=== PATIENT | male | born 1985 | race Hispanic/Latino ===

== ENCOUNTER 2020-09-30 06:01 | Emergency (ER) | payer OTHER, SELFPAY ==
--- NOTE | ~2020-09-30 | CT_ITS ---
EXAMINATION: CT abdomen pelvis wo con DATE: 09/30/2020 07:01 INDICATION: Flank pain. TECHNIQUE: Computed tomography (CT) of the abdomen and pelvis was performed without intravenous contr ast. Automated exposure control and iterative reconstruction technique were employed. The dose-length product was 413.40 mGy-cm. COMPARISON: None. FINDINGS: The visualized portions of the lung bases demonstrate mild atelectasis. There is air trappi ng in basilar left lower lobe. There is a 1.6 cm nodule in left lower lobe. No pleural effusion. The heart size is normal. No pericardial effusion. There is diffuse hepatic steatosis. The gallbladder, s pleen, pancreas, adrenal glands, and kidneys are normal. There is no urolithiasis. There is diverticu losis of the colon without evidence of diverticulitis. The appendix is normal. There are no pathologi susan enlarged lymph nodes. There is no free intraperitoneal fluid. There is mild lumbar spondylosis. IMPRESSION: 1. 1.6 cm nodule in left lung lower lobe, most likely infection. Noncontrast low-dose chest CT is rec ommended in 3 months to exclude malignancy. 2. No urolithiasis. Reviewed, dictated and finalized at location A. IMPRESSION: 1. 1.6 cm nodule in left lung lower lobe, most likely infection. Noncontrast lo w-dose chest CT is recommended in 3 months to exclude malignancy. 2. No urolithiasis.
[2020-09-30 06:06] VITALS: BP 154/101; PULSE 101; RESP 16; TEMP 36.4; O2SAT 98
[2020-09-30] MEDS: SODIUM CHLORIDE 0.9% IV 1,000 ML 999 ML IV CONT (06:28)
[2020-09-30 06:30] LABS: Basophils Absolute Auto 0.1 K/mm3 (0.0-0.1); Basophils Percent Auto 0.7 % (0.2-1.2); Eosinophils Absolute Auto 0.2 K/mm3 (0-0.3); Eosinophils Percent Auto 2.4 % (0-4.4); Hemoglobin 16.6 g/dL (14.0-18.0); Immature Granulocyte Absolute 0.03 K/mm3 (0.00-0.031); Immature Granulocyte Percent A 0.4 % (0-0.5); Lymphocytes Absolute Auto 1.97 K/mm3 (0.9-3.2); Lymphocytes Percent Auto 29.5 % (18.3-44.2); Mean Corpuscular HGB Conc 34.6 g/dl (32-36); Mean Corpuscular Hemoglobin 31.3 pg (26-34); Mean Corpuscular Volume 90.6 fl (80-100); Mean Platelet Volume 9.4 fl (7.4-10.4); Monocytes Absolute Auto 0.5 K/mm3 (0.1-0.6); Monocytes Percent Auto 8.1 % (2.6-8.5); Neutrophils Absolute Auto 3.9 K/mm3 (1.3-6.7); Neutrophils Percent Auto 58.9 % (45.5-73.1); Platelet Count Result 286 k/mm3 (150-375); White Blood Count 6.7 K/mm3 (4.5-10.0)
[2020-09-30 06:38] LABS: Add Urine Microscopic? YES; Appearance Urine Clear (Clear); Bacteria Urine Trace /hpf; Bilirubin Urine 1+ (Negative); Blood Urine 1+ (Negative); Color Urine Amber (Yellow); Glucose Urine UA Negative (Negative); Ketones Urine Negative (Negative); Leukocyte Esterase Ur Negative LEU/UL (Negative); Mucus Urine Heavy /lpf; Nitrate Urine Negative (Negative); Protein Urine 2+ mg/dL (Negative); Squamous Epithelial Cell Urine Rare /hpf (Few)
[2020-09-30 06:39] LABS: Alanine Aminotransferase 144 U/L (4-50); Albumin Level 4.7 g/dL (3.5-5.1); Alkaline Phosphatase 103 U/L (38-126); Anion Gap 12 mmol/L (8-16); Aspartate Amino Transferase 139 U/L (17-59); Bilirubin,Total 1.1 mg/dL (0.2-1.3); Blood Urea Nitrogen 8 mg/dL (9-20); Calcium 9.6 mg/dL (8.4-10.2); Carbon Dioxide 24 mmol/L (22-30); Chloride 105 mmol/L (98-107); Estimated CRCL calculation 160 ml/min; Estimated Glomerular Filt Rate > 60; Glucose 122 mg/dL (75-110); Potassium 3.7 mmol/L (3.4-5.0); Sodium 141 mmol/L (137-145)
--- NOTE | 2020-09-30 06:45 | ED.GENADULT ---
HPI - General Adult General Chief complaint: Back Pain/Injury <Ilan Vazquez MD - Last Filed: 09/30/20 06:48> Stated complaint: back pain <Ilan Vazquez MD - Last Filed: 09/30/20 06:48> Time Seen by Provider: 09/30/20 06:05 <Ilan Vazquez MD - Last Filed: 09/30/20 06:48> History of Present Illness HPI narrative: Patient is a 25-year-old male who presents ER with abdominal pain and back pain. Reports earlier in the week patient began having left upper quadrant abdominal pain after eating. Improved he did not think much of it. He has been having a few alcoholic beverages but denies drinking in excess. He reports he is then started having seem back cramping related to this. It tends to improve with Tylenol. Is not affected by movement. No known injury. Reports he woke up this morning he started urinating. He then had to use the bathroom 2-3 times. After that he began having severe back pain as well. No sweats or nausea or vomiting. No history of kidney stones. <Ilan Vazquez MD - Last Filed: 09/30/20 06:48> Related Data Allergies/adverse reactions: Allergies Allergy/AdvReac Type Severity Reaction Status Date / Time No Known Allergies Allergy Verified 09/30/20 06:20 <Ilan Vazquez MD - Last Filed: 09/30/20 06:48> Review of Systems Review of Systems: All systems reviewed & are unremarkable except as noted in HPI and below <Ilan Vazquez MD - Last Filed: 09/30/20 06:48> Constitutional: Constitutional: Denies chills, Denies fever(s) and Denies weakness <Ilan Vazquez MD - Last Filed: 09/30/20 06:48> Gastrointestinal: Gastrointestinal: Reports abdominal pain, Denies diarrhea, Denies nausea and Denies vomiting <Ilan Vazquez MD - Last Filed: 09/30/20 06:48> Genitourinary: Genitourinary: Denies hematuria, Denies dysuria and Reports urinary frequency <Ilan Vazquez MD - Last Filed: 09/30/20 06:48> Musculoskeletal: Musculoskeletal: Reports back pain and Denies muscle cramps <Ilan Vazquez MD - Last Filed: 09/30/20 06:48> PMFSH Past Medical History Medical History: Medical History (Updated 09/30/20 @ 09:45 by Amanda Rocha MD) Healthy adult male <Ilan Vazquez MD - Last Filed: 09/30/20 06:48> Surgical History Surgical History: Surgical History (Updated 09/30/20 @ 06:47 by Ilan Vazquez MD) No history of previous surgery <Ilan Vazquez MD - Last Filed: 09/30/20 06:48> Social History Social History: Social History (Updated 09/30/20 @ 06:47 by Ilan Vazquez MD) Alcohol intake: current Gender identity (if verbalized by the patient): Male <Ilan Vazquez MD - Last Filed: 09/30/20 06:48> Exam Narrative: Exam Narrative: GENERAL: Well-appearing, well-nourished, and in no acute distress. HEAD: Normocephalic, atraumatic. CHEST: Clear to auscultation. No respiratory distress. HEART: Tachycardic and regular. Normal peripheral pulses. ABDOMEN: Soft, nontender, nondistended. Back: No CVA tenderness. Reproducible paraspinal or midline tenderness the patient does report his pain was centered around the T10 region. EXTREMITIES: Normal range of motion. No edema. SKIN: Warm, dry, no rash. NEURO: Alert and oriented x3. PSYCH: Normal mood and affect. <Ilan Vazquez MD - Last Filed: 09/30/20 06:48> Course Reevaluation(s) Reevaluation #1: Patient feeling okay. Currently is asymptomatic, was notified about the lung nodule. Patient understood and agreed to follow-up with a family physician for further evaluation. <Amanda Rocha MD - Last Filed: 09/30/20 09:49> Date: 09/30/20 <Amanda Rocha MD - Last Filed: 09/30/20 09:49> Time: 09:49 <Amanda Rocha MD - Last Filed: 09/30/20 09:49> Vital Signs Vital signs: Vital Signs Temperature 36.4 C L 09/30/20 06:06 Pulse Rate 101 H 09/30/20 06:06 Respiratory Rate 16 09/30/20 06:06 Blood Pressure 154/101 H 05
[2020-09-30 06:46] LABS: Specific Grav Ur 1.035 (1.001-1.035)
[2020-09-30 06:55] LABS: Lipase 89 U/L (23-300)
[2020-09-30 07:10] VITALS: BP 136/99; PULSE 91; RESP 20; O2SAT 100
[2020-09-30 08:13] VITALS: BP 129/91; PULSE 88; RESP 20; O2SAT 98
[2020-09-30 09:32] VITALS: BP 140/107; PULSE 86; RESP 20; O2SAT 100
[2020-09-30 10:00] VITALS: BP 140/107; PULSE 90; RESP 18; O2SAT 98
== END 2020-09-30 10:02 | disposition home or self-care (01) ==
PROVIDERS: Emergency Medicine; Emergency Provider Emergency Medicine
DX: R91.1 Solitary pulmonary nodule (principal); R10.10 Upper abdominal pain, unspecified
CPT/HCPCS: 36415; 74176; 80053; 81001; 83690; 85025; 96360; 99284; J7030

== ENCOUNTER 2020-10-05 09:25 | Outpatient (CLI) | payer OTHER, SELFPAY ==
--- NOTE | ~2020-10-05 | XR_ITS ---
EXAMINATION: XR abdomen/kub 1V EXAM DATE: 10/05/2020 10:02 INDICATION: Abnormal urinalysis, left upper quadrant pain. TECHNIQUE: Frontal projection(s) of the abdomen for interpretation. There is no prior study for lesia jones. FINDINGS: There is expected amount of colonic stool and gas. No small bowel dilation, nonobstructiv e bowel gas pattern. Calcifications in the pelvis are believed to be phleboliths. There are no susp icious calcifications identified. There is no organomegaly suspected. The bones are unremarkable. IMPRESSION: Unremarkable abdomen x-ray exam. Reviewed, dictated and finalized at location B.
--- NOTE | ~2020-10-05 | US_ITS ---
EXAMINATION: US renal BI, US abdomen limited DATE: 10/05/2020 10:28 INDICATION: Elevated liver enzymes. Back pain. Abnormal urine. TECHNIQUE: Multiple ultrasound grayscale images of the right upper quadrant of the abdomen and of the kidneys were obtained. COMPARISON: None. FINDINGS: Abdomen: The pancreatic head and body are normal in appearance. The pancreatic tail is not visualized. Liver has normal contour, with a smooth surface. There is increased parenchymal echogenicity and coarsened echotexture consistent with diffuse hepatic steatosis. No liver lesion identified. No intrahepatic b iliary duct dilation suspected. Portal venous flow was seen in the hepatopetal, normal direction and has normal Doppler waveform. The gallbladder is normal in appearance. There is no cholelithiasis. Th e common bile duct measures 3 mm, which is normal. The visualized proximal to mid inferior vena cava is normal. The proximal aorta is suboptimally visualized but appears normal in caliber. Kidneys: The right kidney measures 12.7 x 4.6 x 5.4 cm. The left kidney measures 11.7 x 6.4 x 4.9 cm. The kidn eys demonstrate normal echogenicity. There is no hydronephrosis in either kidney. No stones identifi ed. The bladder is normal. IMPRESSION: 1. Diffuse hepatic steatosis. Otherwise normal right upper quadrant ultrasound. 2. Normal kidneys without hydronephrosis. Reviewed, dictated and finalized at location A. IMPRESSION: 1. Diffuse hepatic steatosis. Otherwise normal right upper quadrant ultrasound. 2. Normal kidneys without hydronephrosis.
[2020-10-05 10:47] LABS: Add Urine Microscopic? YES; Appearance Urine Clear (Clear); Bilirubin Urine Negative (Negative); Blood Urine Negative (Negative); Color Urine Amber (Yellow); Glucose Urine UA Negative (Negative); Ketones Urine Trace mg/dL (Negative); Leukocyte Esterase Ur Negative LEU/UL (NEGATIVE); Nitrate Urine Negative (Negative); Protein Urine 2+ mg/dL (Negative); Specific Grav Ur 1.021 (1.001-1.035)
[2020-10-05 10:51] LABS: Mucus Urine Few /lpf
[2020-10-05 10:52] LABS: WBC Urine 0-3 /hpf (0-3)
[2020-10-05 11:38] LABS: Hepatitis B Surface Antigen Negative (Negative)
[2020-10-05 11:44] LABS: HAV RESULT Negative (Negative); Hepatitis B Core IgM Result Negative (Negative)
[2020-10-05 11:56] LABS: Hepatitis C Virus Antibody Negative (Negative)
== END 2020-10-05 09:26 | disposition home or self-care (01) ==
PROVIDERS: PCP Emergency Medicine; Visit Provider Emergency Medicine
DX: R74.8 Abnormal levels of other serum enzymes (principal); K76.0 Fatty (change of) liver, not elsewhere classified; R82.90 Unspecified abnormal findings in urine
CPT/HCPCS: 36415; 74018; 76705; 76775; 80074; 81001; 87086

== ENCOUNTER → 2020-11-10 12:45 | Outpatient (CLI) | payer OTHER, SELFPAY ==
--- NOTE | ~2020-11-10 | XR_ITS ---
XR chest 2V DATE: 11/10/2020 13:14 INDICATION: Cough, fever, chest pain for 3 days TECHNIQUE: Frontal and lateral projections COMPARISON: None FINDINGS: Normal heart size. No hilar or mediastinal enlargement. No pulmonary infiltrate or consolid ation, pleural effusion or pulmonary vascular congestion or pneumothorax. Included skeletal structures are unremarkable. IMPRESSION: No active cardiopulmonary disease Reviewed, dictated and finalized at location A.
== END ==
LOC: EXPCRAD 12:48
PROVIDERS: PCP Emergency Medicine; Visit Provider Emergency Medicine
DX: R05 Cough (principal)
CPT/HCPCS: 71046

== ENCOUNTER → 2020-11-13 06:46 | Outpatient (CLI) | payer OTHER, SELFPAY ==
[2020-11-13 16:50] LABS: SARS-CoV-2 RNA PCR Negative
== END ==
PROVIDERS: PCP Emergency Medicine; Visit Provider Emergency Medicine
DX: J06.9 Acute upper respiratory infection, unspecified (principal); R05 Cough; Z20.822 Contact with and (suspected) exposure to COVID-19
CPT/HCPCS: C9803; U0003; U0005

== ENCOUNTER 2020-11-14 13:37 | Emergency (ER) | payer OTHER, SELFPAY ==
[2020-11-14] VITALS (18 sets, daily range): BP systolic 110–131; BP diastolic 73–85; PULSE 92–104; RESP 13–24; TEMP 36.9; O2SAT 98–100
--- NOTE | ~2020-11-14 | XR_ITS ---
EXAMINATION: XR chest 1V portable DATE: 11/14/2020 14:29 INDICATION: Fever. TECHNIQUE: A single frontal view of the chest was obtained. COMPARISON: Chest 2 views 11/10/2020, CT abdomen and pelvis 09/30/2020 FINDINGS: There is mild atelectasis in the lower lung zones. No pleural effusion or pneumothorax. The heart size is normal. IMPRESSION: 1. Mild atelectasis in the lower lung zones. Reviewed, dictated and finalized at location A.
--- NOTE | 2020-11-14 14:19 | ECG_ITS ---
Measurements Intervals [place] Rate: 96 P: 40 KS: 168 QRS: 38 QRSD: 91 T: 18 QT: 339 QTc: 429 Interpretive Statements SINUS RHYTHM MINIMAL Q WAVES- INF/LAT LEADS BASELINE ARTIFACT- V2 BORDERLINE ECG Electronically Signed On 11-14-2020 16:31:55 CDT by Santos Yepez D.O.
[2020-11-14 15:05] LABS: Basophils Percent Auto 0.5 % (0.2-1.2); Eosinophils Percent Auto 0.4 % (0-4.4); Hematocrit 42.1 % (42.0-52.0); Hemoglobin 14.9 g/dL (14.0-18.0); Immature Granulocyte Absolute 0.03 K/mm3 (0.00-0.031); Immature Granulocyte Percent A 0.4 % (0-0.5); Lymphocytes Absolute Auto 0.88 K/mm3 (0.9-3.2); Lymphocytes Percent Auto 10.5 % (18.3-44.2); Mean Corpuscular HGB Conc 35.4 g/dl (32-36); Mean Corpuscular Hemoglobin 30.7 pg (26-34); Mean Corpuscular Volume 86.8 fl (80-100); Mean Platelet Volume 9.1 fl (7.4-10.4); Monocytes Absolute Auto 0.9 K/mm3 (0.1-0.6); Monocytes Percent Auto 11.2 % (2.6-8.5); Neutrophils Absolute Auto 6.5 K/mm3 (1.3-6.7); Platelet Count Result 411 k/mm3 (150-375); Red Blood Count 4.85 M/mm3 (4.6-6.20); White Blood Count 8.4 K/mm3 (4.5-10.0)
[2020-11-14] MEDS: SODIUM CHLORIDE 0.9% IV 1,000 ML 999 ML IV CONT (15:12)
[2020-11-14 15:14] LABS: Lactic Acid Reflex 1.3 mmol/L (0.7-2.1)
[2020-11-14 15:23] LABS: Alanine Aminotransferase 75 U/L (4-50); Albumin Level 4.2 g/dL (3.5-5.1); Alkaline Phosphatase 116 U/L (38-126); Anion Gap 13 mmol/L (8-16); Aspartate Amino Transferase 77 U/L (17-59); Bilirubin,Total 1.3 mg/dL (0.2-1.3); Blood Urea Nitrogen 8 mg/dL (9-20); Calcium 9.8 mg/dL (8.4-10.2); Carbon Dioxide 28 mmol/L (22-30); Chloride 88 mmol/L (98-107); Estimated CRCL calculation 168 ml/min; Estimated Glomerular Filt Rate > 60; Glucose 124 mg/dL (75-110); Lipase 87 U/L (23-300); Potassium 3.1 mmol/L (3.4-5.0); Sodium 129 mmol/L (137-145)
[2020-11-14 15:58] LABS: CRP 37.5 mg/dL (<1.0)
[2020-11-14 16:17] LABS: Add Urine Microscopic? YES; Appearance Urine Clear (Clear); Bacteria Urine Trace /hpf; Bilirubin Urine Negative (Negative); Blood Urine Negative (Negative); Color Urine Amber (Yellow); Glucose Urine UA Negative (Negative); Ketones Urine Trace mg/dL (Negative); Leukocyte Esterase Ur Negative LEU/UL (Negative); Mucus Urine Rare /lpf; Nitrate Urine Negative (Negative); Protein Urine 2+ mg/dL (Negative); RBC Urine 0-2 /hpf (0-2); Squamous Epithelial Cell Urine Rare /hpf (Few); WBC Urine 0-3 /hpf
--- NOTE | 2020-11-14 16:31 | WPDEDEXPGENP ---
HPI - General Ped General Chief complaint: Fever Stated complaint: Fever Time Seen by Provider: 11/14/20 14:19 Source: patient, family and RN notes reviewed Mode of arrival: ambulatory Limitations: no limitations History of Present Illness HPI narrative: Patient is a 35-year-old male who presents to emergency department for evaluation of fever chills body aches cough productive of green phlegm that been present since prior Friday patient has had 3 - Covid test during this.. Patient notes initially he had some nausea and vomiting which has resolved. Patient notes he has not been vaccinated for Covid. Patient notes his nausea has resolved but he continues to have fevers Related Data Allergies Allergy/AdvReac Type Severity Reaction Status Date / Time No Known Allergies Allergy Verified 09/30/20 06:20 Pediatric Review of Systems All systems ED: reviewed and negative except as stated PMFSH Past Medical History Medical History Healthy adult male Surgical History Surgical History No history of previous surgery Social History Social History (Updated 11/14/20 @ 16:34 by Mohan Nava PA-C) Smoking status: Never smoker Alcohol intake: current Gender identity (if verbalized by the patient): Male Pediatric Exam Narrative: Physical exam: GENERAL: Well-appearing, well-nourished, and in no acute distress. HEAD: Normocephalic, atraumatic. EYES: PERRLA and EOMI. ENT: Nares clear, no rhinorrhea or epistaxis. Mucous membranes moist. Oropharynx without tonsillar hypertrophy exudate or other lesions. Bilateral TMs pearly miguel nonbulging NECK: Supple. No adenopathy or masses. CHEST: Clear to auscultation. No respiratory distress. No wheezes rales or rhonchi HEART: Regular rate and rhythm. No murmur heard. Normal peripheral pulses. ABDOMEN: Soft, nontender, nondistended EXTREMITIES: Normal range of motion. No edema. SKIN: Warm, dry, no rash. NEURO: No focal deficits. Alert and oriented x3. PSYCH: Normal mood and affect. Course Course Emergency Course: Patient presented with fever and upper respiratory symptoms had negative influenza strep and Covid test will be sent back to primary care for further evaluation no other sources to suggest a site for infection nontender abdominal exam. Patient does currently still have a cough could potentially be a walking pneumonia or sinus symptoms as the etiology patient at this time is nontoxic-appearing afebrile Vital Signs Vital signs: Vital Signs Temperature 98.4 F 11/14/20 13:48 Pulse Rate 98 11/14/20 13:48 Respiratory Rate 16 11/14/20 13:48 Blood Pressure 131/85 11/14/20 13:48 Pulse Oximetry 100 11/14/20 13:48 Temperature 98.4 F 11/14/20 13:48 Pulse Rate 94 11/14/20 16:00 Respiratory Rate 20 11/14/20 16:00 Blood Pressure 110/77 11/14/20 15:30 Pulse Oximetry 99 11/14/20 16:00 Medical Decision Making MDM Narrative Medical decision making narrative: Patient presented with upper respiratory symptoms will be managed on outpatient basis provided with reasons to return patient with ABCs and vital signs intact and stable. Patient is nontoxic-appearing no distress felt appropriate for outpatient reevaluation agreeing with this plan Vital Signs Vital Signs: Vital Signs Temperature 98.4 F 11/14/20 13:48 Pulse Rate 98 11/14/20 13:48 Respiratory Rate 16 11/14/20 13:48 Blood Pressure 131/85 11/14/20 13:48 Pulse Oximetry 100 11/14/20 13:48 Temperature 98.4 F 11/14/20 13:48 Pulse Rate 94 11/14/20 16:00 Respiratory Rate 20 11/14/20 16:00 Blood Pressure 110/77 11/14/20 15:30 Pulse Oximetry 99 11/14/20 16:00 Lab Data Result diagrams: 11/14/20 14:57 11/14/20 14:57 Labs: Lab Results 11/14/20 11/14/20 11/14/20 Range/Units 14:57 14:57 14:57 WBC 8.4 (4.5-10
[2020-11-14 16:34] LABS: Specific Grav Ur 1.031 (1.001-1.035)
[2020-11-14 16:42] LABS: Monoscreen Negative (Negative); Negative Monotest Control Negative (Negative); Positive Monotest Control Positive (Positive)
[2020-11-14] MEDS: IBUPROFEN IV 800 MG/200 ML 800 MG/200 ML BAG 400 MG IVPB (17:35)
== END 2020-11-14 18:37 | disposition home or self-care (01) ==
PROVIDERS: Emergency Medicine Emergency Medical Services; Emergency Provider Emergency Medicine; PCP Emergency Medicine
DX: J06.9 Acute upper respiratory infection, unspecified (principal); R50.9 Fever, unspecified
CPT/HCPCS: 36415; 71045; 80053; 81001; 83605; 83690; 85025; 85610; 85730; 86140; 86308; 87040; 87081; 87804; 87880; 93005; 96361; 96365; 99284; J1741; J7030

== ENCOUNTER 2020-11-30 16:18 | Outpatient (CLI) | payer OTHER, SELFPAY ==
--- NOTE | ~2020-11-30 | XR_ITS ---
EXAMINATION: XR chest 2V DATE: 11/30/2020 16:47 INDICATION: Pneumonia right lung TECHNIQUE: PA and lateral views of the chest are obtained. COMPARISON: 11/14/2020 FINDINGS: The lungs are free of acute opacities. There is mild atelectasis of the lung bases. There i s no pleural effusion or pneumothorax. The cardiomediastinal silhouette is normal. The visualized bon es and soft tissues are unremarkable. IMPRESSION: 1. No acute cardiopulmonary abnormality. Reviewed, dictated and finalized at location A.
== END 2020-11-30 16:19 ==
PROVIDERS: PCP Nurse Practitioner Family; Visit Provider Nurse Practitioner Family
DX: J18.9 Pneumonia, unspecified organism (principal)
CPT/HCPCS: 71046